=== PATIENT | female | born 1990 | race Caucasian/White ===

== ENCOUNTER 2022-08-07 23:20 | Observation (INO) | payer OTHER, SELFPAY ==
[2022-08-07] MEDS ORDERED: Lactated Ringer's 1,000 ML IV SCH (23:45)
[2022-08-07] MEDS ORDERED: hydrALAZINE 20 MG/ML VIAL SLOW IVP PRN (23:55)
[2022-08-08 00:50] LABS: Bilirubin Neg (Negative); Blood, Urine Negative (Negative); Clarity Clear (Clear); Glucose, Urine (Dipstick) Normal (Negative); Ketone, Urine 50 mg/dL (Negative); Leukocyte 100 (Negative); Nitrite Negative (Negative); Protein, Urine (Dipstick) 15 mg/dl (Neg-Trace); Urobilinogen Normal mg/dL (Less than 2)
[2022-08-08 00:52] LABS: Hemoglobin 7.8 g/dL (12.0-15.5); Mean Corpuscular HGB CONC 29.8 g/dL (32.0-36.0); Mean Corpuscular Hemoglobin 20.6 pg (27.0-33.0); Mean Corpuscular Volume 69.3 fl (81.6-98.3); Mean Platelet Volume 9.8 fl (7.4-10.4); Platelet Count 320 10x3/uL (150-450); RBC Distribution Width 17.8 % (11.5-14.5); Red Blood Cell (RBC) Count 3.78 10x6/uL (3.90-5.03); White Blood Cell (WBC) Count 7.7 10x3/uL (3.5-10.5)
[2022-08-08 00:58] LABS: Bacteria/HPF None Seen HPF (None Seen); RBC/HPF 0-3 HPF (0-3); Squamous Epithelial 0-3 HPF (0-3)
[2022-08-08 01:00] LABS: Amphetamine Not Detected (NotDetected); Barbiturates Screen Not Detected (NotDetected); Benzodiazepine Screen Not Detected (NotDetected); Cocaine Metabolite Screen Not Detected (NotDetected); Methadone Not Detected (NotDetected); Methamphetamine Not Detected (NotDetected); Opiate Screen Not Detected (NotDetected); Oxycodone Screen Not Detected (NotDetected); Phencyclidine (PCP) Not Detected (NotDetected); THC/Cannabinoid Screen Not Detected (NotDetected); Tricyclic Screen Not Detected (NotDetected)
[2022-08-08 01:20] LABS: HIV (1/2) Antibody/Antigen Non-Reactive (NonReactive); HIV 1/2 INDEX 0.13 S/CO (<1.00)
[2022-08-08 01:21] LABS: Syphilis Antibody Nonreactive (Nonreactive); Syphilis Antibody Index 0.05 S/CO (<1.00 Non-Reactive)
[2022-08-08] MEDS ORDERED: Butorphanol Tartrate 1 MG/ML VIAL SLOW IVP PRN (01:34)
[2022-08-08] MEDS ORDERED: Acetaminophen 500 MG TAB PO PRN (01:35)
[2022-08-08] MEDS ORDERED: hydrALAZINE 20 MG/ML VIAL SLOW IVP PRN (01:36)
[2022-08-08] MEDS ORDERED: Promethazine HCl 25 MG/ML VIAL IM PRN (01:36)
[2022-08-08] MEDS ORDERED: Ondansetron PF 4 MG/2 ML Vial IVP PRN (01:36)
[2022-08-08] MEDS ORDERED: Betamet Acet/Betamet Na Ph 30 MG/5 ML VIAL IM SCH (01:45)
[2022-08-08] MEDS ORDERED: Iron, Sodium Ferric Gluconate 250 MG in Sodium Chloride 0.9% 250 ML 250 ML IVPB SCH (01:45)
[2022-08-08] MEDS ORDERED: Betamet Acet/Betamet Na Ph 30 MG/5 ML VIAL ONE (01:46)
[2022-08-08 01:56] LABS: HBSAg Index 0.17 S/CO (0-0.99); Hep B Surf Ag Non-Reactive S/CO (NonReactive)
[2022-08-08 04:24] VITALS: BMI 26.9
[2022-08-08] MEDS ORDERED: Ferrous Gluconate 324 MG TAB PO SCH (08:00)
[2022-08-08 11:14] LABS: #Eosinphils 0.1 10x3/uL (0.0-0.5); #Monocytes 0.5 10x3/uL (0.0-1.1); #Neutrophils 3.8 10x3/uL (1.5-8.4); %Basophils 0.5 % (0.0-2.0); %Eosinophils 0.9 % (0.0-6.0); %Lymphocytes 24.7 % (18.0-47.0); %Monocytes 8.1 % (0.0-10.0); %Neutrophils 65.3 % (40.0-75.0); Hemoglobin 8.6 g/dL (12.0-15.5); Mean Corpuscular HGB CONC 31.2 g/dL (32.0-36.0); Mean Corpuscular Hemoglobin 22.6 pg (27.0-33.0); Mean Corpuscular Volume 72.4 fl (81.6-98.3); Mean Platelet Volume 9.5 fl (7.4-10.4); Platelet Count 227 10x3/uL (150-450); RBC Distribution Width 19.3 % (11.5-14.5); Red Blood Cell (RBC) Count 3.81 10x6/uL (3.90-5.03); White Blood Cell (WBC) Count 5.8 10x3/uL (3.5-10.5)
[2022-08-09 13:06] LABS: Group B Streptococcus by PCR Not Detected (NotDetected)
== END 2022-08-08 12:25 | disposition home health service (06) ==
LOC: CSHLD/OP 23:20 → CSHLD 08-08 02:02 → INTOOBSV 08-08 02:02
PROVIDERS: ADMIT Obstetrics & Gynecology; ATTEND Obstetrics & Gynecology
DX: O47.03 False labor before 37 completed weeks of gestation, third trimester (principal); O99.013 Anemia complicating pregnancy, third trimester; D64.9 Anemia, unspecified; O09.43 Supervision of pregnancy with grand multiparity, third trimester; Z3A.36 36 weeks gestation of pregnancy
CPT/HCPCS: 36415; 36430; 76805; 80306; 81001; 85027; 86762; 86780; 86850; 86900; 86901; 86905; 86922; 87340; 87389; 87653; 99285; J0595; J0702; P9016

== ENCOUNTER 2022-08-21 12:05 | Day surgery (SDC) | payer OTHER ==
[2022-08-21 12:25] VITALS: BMI 26.9
[2022-08-21] MEDS ORDERED: hydrALAZINE 20 MG/ML VIAL SLOW IVP PRN (12:27)
[2022-08-21 13:14] LABS: #Eosinphils 0.1 10x3/uL (0.0-0.5); #Monocytes 0.5 10x3/uL (0.0-1.1); %Basophils 0.5 % (0.0-2.0); %Eosinophils 0.6 % (0.0-6.0); %Lymphocytes 20.4 % (18.0-47.0); %Monocytes 5.5 % (0.0-10.0); %Neutrophils 72.5 % (40.0-75.0); Hemoglobin 9.3 g/dL (12.0-15.5); Mean Corpuscular HGB CONC 31.2 g/dL (32.0-36.0); Mean Corpuscular Volume 73.6 fl (81.6-98.3); Mean Platelet Volume 9.8 fl (7.4-10.4); Platelet Count 244 10x3/uL (150-450); RBC Distribution Width 22.2 % (11.5-14.5); Red Blood Cell (RBC) Count 4.05 10x6/uL (3.90-5.03); White Blood Cell (WBC) Count 8.2 10x3/uL (3.5-10.5)
[2022-08-21 13:43] LABS: Platelet Morphology Comment Appears Adequate
[2022-08-21 13:45] LABS: Anisocytosis MODERATE=16-30 cells (100X) (0-5/hpf); Elliptocytes SLIGHT = 2-5 cells (100X) (0-1/hpf); Hypochromia SLIGHT = 6-15 cells (100X) (0-5/hpf); Macrocytosis SLIGHT = 6-15 cells (100X) (0-5/hpf); Microcytosis SLIGHT = 6-15 cells (100X) (0-5/hpf); Polychromasia SLIGHT = 2-3 cells (100X) (0-2/hpf)
[2022-08-21] MEDS ORDERED: Iron Sucrose Complex 500 MG in Sodium Chloride 0.9% 250 ML 250 ML IVPB SCH (14:45)
[2022-08-21] MEDS ORDERED: Acetaminophen 500 MG TAB PO SCH (14:45)
[2022-08-21 15:35] LABS: Bilirubin Neg (Negative); Blood, Urine Negative (Negative); Clarity Clear (Clear); Glucose, Urine (Dipstick) Normal (Negative); Ketone, Urine 5 mg/dL (Negative); Leukocyte 25 (Negative); Nitrite Negative (Negative); Protein, Urine (Dipstick) Negative (Neg-Trace); Urobilinogen Normal mg/dL (Less than 2)
[2022-08-21 15:49] LABS: Bacteria/HPF Rare-Few HPF (None Seen); CAUTI Indications for Culture Pregnancy; RBC/HPF 0-3 HPF (0-3); Squamous Epithelial 0-3 HPF (0-3); WBC/HPF 0-3 HPF (0-3)
[2022-08-21 15:51] LABS: Urine Culture Reflex Yes Yes
[2022-08-21 23:31] LABS: Hep C IgG Ab Non-Reactive (NonReactive); Hep C Index 0.05 S/CO (0-0.79)
== END 2022-08-21 21:18 | disposition home or self-care (01) ==
LOC: CSHLD/OP 12:05
PROVIDERS: ATTEND Family Medicine
DX: O47.1 False labor at or after 37 completed weeks of gestation (principal); O09.33 Supervision of pregnancy with insufficient antenatal care, third trimester; O99.013 Anemia complicating pregnancy, third trimester; D64.9 Anemia, unspecified; Z87.440 Personal history of urinary (tract) infections; Z3A.37 37 weeks gestation of pregnancy
CPT/HCPCS: 76819; 81001; 85025; 86803; 87077; 87086; 96361; 96365; 96366; 99283; J1756; J7050

== ENCOUNTER 2022-08-28 15:10 | Inpatient (IN) | payer OTHER ==
[2022-08-28] MEDS ORDERED: Butorphanol Tartrate 1 MG/ML VIAL SLOW IVP PRN (16:19)
[2022-08-28] MEDS ORDERED: Promethazine HCl 25 MG/ML VIAL IM PRN ×2 (16:19→17:42)
[2022-08-28] MEDS ORDERED: Methylergonovine 0.2 MG/ML VIAL IM PRN (16:19)
[2022-08-28] MEDS ORDERED: Carboprost 250 MCG/ML AMP IM PRN (16:19)
[2022-08-28] MEDS ORDERED: Ondansetron PF 4 MG/2 ML Vial IVP PRN ×2 (16:19→17:42)
[2022-08-28] MEDS ORDERED: hydrALAZINE 20 MG/ML VIAL SLOW IVP PRN (16:19)
[2022-08-28] MEDS ORDERED: Misoprostol 200 MCG TAB PR PRN (16:19)
[2022-08-28] MEDS ORDERED: Acetaminophen 500 MG TAB PO PRN (16:19)
[2022-08-28] MEDS ORDERED: NS w/ Oxytocin 30 units 500 ML IV SCH (16:30)
[2022-08-28 16:31] LABS: Hemoglobin 9.5 g/dL (12.0-15.5); Mean Corpuscular HGB CONC 30.8 g/dL (32.0-36.0); Mean Corpuscular Hemoglobin 23.5 pg (27.0-33.0); Mean Corpuscular Volume 76.2 fl (81.6-98.3); Mean Platelet Volume 9.8 fl (7.4-10.4); Platelet Count 275 10x3/uL (150-450); RBC Distribution Width 24.9 % (11.5-14.5); Red Blood Cell (RBC) Count 4.04 10x6/uL (3.90-5.03); White Blood Cell (WBC) Count 7.8 10x3/uL (3.5-10.5)
[2022-08-28 16:48] VITALS: BMI 27.3
[2022-08-28] MEDS ORDERED: Fentanyl 2 mcg/Bup 0.1% Cadd 100 ML ONE (17:11)
[2022-08-28 17:13] LABS: HBSAg Index 0.18 S/CO (0-0.99); Hep B Surf Ag Non-Reactive S/CO (NonReactive); Syphilis Antibody Nonreactive (Nonreactive); Syphilis Antibody Index 0.03 S/CO (<1.00 Non-Reactive)
[2022-08-28] MEDS ORDERED: Ibuprofen 800 MG TAB PO PRN (17:14)
[2022-08-28] MEDS ORDERED: Lidocaine 1% (PF) 30 ML VIAL SC PRN (17:14)
[2022-08-28 17:36] LABS: SARS-CoV-2 NAA Rapid Test Not Detected (NotDetected)
[2022-08-28] MEDS ORDERED: Naloxone HCl 0.4 mg/ml Vial IVP PRN ×2 (17:42)
[2022-08-28] MEDS ORDERED: Acetaminophen 325 MG TAB PO PRN (17:42)
[2022-08-28] MEDS ORDERED: diphenhydrAMINE 50 MG/ML VIAL IVP PRN (17:42)
[2022-08-28] MEDS ORDERED: Moisturizing Cream (Eucerin) 113 GM JAR TOP PRN (17:42)
[2022-08-28] MEDS ORDERED: ePHEDrine Sulfate 50 MG/10 ML VIAL SLOW IVP PRN (17:42)
[2022-08-28] MEDS ORDERED: Fentanyl 2 mcg/Bupivacaine 0.1% Cassette 100 ML EPIDURAL SCH (17:45)
[2022-08-28] MEDS ORDERED: Communication Order-Pharmacy FS SCH (17:45)
[2022-08-28] MEDS ORDERED: Lactated Ringer's 500 ML IV PRN (17:59)
[2022-08-28] MEDS ORDERED: Penicillin G Potassium 5 MILL.UNITS in Sodium Chloride 0.9% 100 ML IVPB SCH (18:00)
[2022-08-28] MEDS: Lactated Ringer's 1,000 ML IV SCH (18:01)
[2022-08-28] MEDS ORDERED: Misoprostol 200 MCG TAB ONE (19:29)
[2022-08-28] MEDS ORDERED: Carboprost 250 MCG/ML AMP ONE (19:30)
[2022-08-28] MEDS ORDERED: Methylergonovine 0.2 MG/ML VIAL ONE (19:30)
[2022-08-28] MEDS ORDERED: Tranexamic Acid 1,000 MG/10 ML VIAL ONE (19:30)
[2022-08-28] MEDS: Penicillin G 2.5 MILL.units 2.5 MILL.UNITS in Premix Bag 1 BAG IVPB SCH (23:10)
[2022-08-29] MEDS: Lactated Ringer's 1,000 ML IV SCH (00:40)
[2022-08-29] MEDS: Penicillin G 2.5 MILL.units 2.5 MILL.UNITS in Premix Bag 1 BAG IVPB SCH ×2 (03:31→03:32)
[2022-08-29] MEDS ORDERED: Milk Of Magnesia 30 ML UDCUP PO PRN (03:33)
[2022-08-29] MEDS ORDERED: hydrALAZINE 20 MG/ML VIAL SLOW IVP PRN (03:33)
[2022-08-29] MEDS ORDERED: Lanolin Ointment 7 GM TUBE TOP PRN (03:33)
[2022-08-29] MEDS ORDERED: Measles/Mumps/Rubella 10 MCG/0.5 ML VIAL SC ONE (03:33)
[2022-08-29] MEDS ORDERED: Bisacodyl 10 MG SUPP PR PRN (03:33)
[2022-08-29] MEDS ORDERED: Boostrix 0.5 ML (Tdap) VIAL (>/=7 yrs of age) IM ONE (03:33)
[2022-08-29] MEDS ORDERED: Varicella virus, LIVE 0.5 ML VIAL SC ONE (03:33)
[2022-08-29] MEDS: Ibuprofen 800 MG TAB PO SCH ×3 (06:32→21:27)
[2022-08-29] MEDS ORDERED: Bupivacaine 0.25% HCL 30 ML VIAL ONE (08:00)
[2022-08-29] MEDS: Docusate 100 MG CAP PO SCH ×2 (08:21→21:27)
[2022-08-29] MEDS: Prenatal Vitamin 1 TAB PO SCH (08:21)
[2022-08-29] MEDS: Ferrous Sulfate 325 MG TAB PO SCH ×2 (08:21→17:41)
[2022-08-29] MEDS: Acetaminophen 325 MG TAB PO PRN (15:26)
[2022-08-29] MEDS ORDERED: traMADol HCl 50 MG TAB PO SCH (19:45)
[2022-08-30] MEDS: Acetaminophen 325 MG TAB PO PRN (04:38)
[2022-08-30 04:54] LABS: Hemoglobin 10.1 g/dL (12.0-15.5)
[2022-08-30] MEDS: Ibuprofen 800 MG TAB PO SCH ×2 (05:12→13:40)
[2022-08-30 08:01] VITALS: BP 101/67; TEMP 97.7
[2022-08-30] MEDS: Prenatal Vitamin 1 TAB PO SCH (08:45)
[2022-08-30] MEDS: Ferrous Sulfate 325 MG TAB PO SCH (08:45)
[2022-08-30] MEDS: Docusate 100 MG CAP PO SCH (08:45)
[2022-08-30] MEDS: Acetaminophen 325 MG TAB PO SCH ×2 (08:46→13:39)
== END 2022-08-30 15:04 | disposition home or self-care (01) | DRG 807 ==
LOC: CSHLD/OP 15:10 → CSHLD 16:34 → CSHPP 08-29 05:25
PROVIDERS: ADMIT Obstetrics & Gynecology; ATTEND Obstetrics & Gynecology
PROC: 10E0XZZ Delivery of Products of Conception, External Approach (ICD-10-PCS; principal; 2022-08-29)
PROC: 10907ZC Drainage of Amniotic Fluid, Therapeutic from Products of Conception, Via Natural or Artificial Opening (ICD-10-PCS; 2022-08-29)
DX: O99.824 Streptococcus B carrier state complicating childbirth (principal); Z37.0 Single live birth; D64.9 Anemia, unspecified; F41.9 Anxiety disorder, unspecified; O99.344 Other mental disorders complicating childbirth; O99.02 Anemia complicating childbirth; Z3A.34 34 weeks gestation of pregnancy; Z98.890 Other specified postprocedural states; Z20.822 Contact with and (suspected) exposure to COVID-19
CPT/HCPCS: 36415; 51702; 85014; 85018; 85027; 86780; 86850; 86900; 86901; 86922; 87340; 99285; J2405; J2540; J7120; S0020; U0002

== ENCOUNTER 2024-01-11 17:02 | Day surgery (SDC) | payer SELFPAY ==
[2024-01-11] MEDS ORDERED: hydrALAZINE 20 MG/ML VIAL SLOW IVP PRN (17:30)
[2024-01-11 19:02] VITALS: BMI 28.9
[2024-01-11 19:18] LABS: Bilirubin Neg (Negative); Blood, Urine 10 (Negative); Clarity Clear (Clear); Glucose, Urine (Dipstick) Normal (Negative); Ketone, Urine Negative (Negative); Leukocyte 25 (Negative); Nitrite Negative (Negative); Protein, Urine (Dipstick) Negative (Neg-Trace); Urobilinogen Normal mg/dL (Less than 2)
[2024-01-11 19:20] LABS: Hematocrit 29.8 % (34.9-44.5); Hemoglobin 9.8 g/dL (12.0-15.5); Mean Corpuscular HGB CONC 32.9 g/dL (32.0-36.0); Mean Corpuscular Hemoglobin 26.3 pg (27.0-33.0); Mean Corpuscular Volume 79.9 fL (81.6-98.3); Mean Platelet Volume 10.1 fL (7.4-10.4); Platelet Count 267 10x3/uL (150-450); RBC Distribution Width 14.8 % (11.5-14.5); Red Blood Cell (RBC) Count 3.73 10x6/uL (3.90-5.03); White Blood Cell (WBC) Count 7.3 10x3/uL (3.5-10.5)
[2024-01-11] MEDS: Ondansetron ODT 4 MG TAB SL PRN (19:26)
[2024-01-11 19:30] LABS: Bacteria/HPF 1+ HPF (None Seen); RBC/HPF 0-3 HPF (0-3); Squamous Epithelial 0-3 HPF (0-3); WBC/HPF 0-3 HPF (0-3)
[2024-01-11 19:52] LABS: Syphilis Antibody Nonreactive (Nonreactive); Syphilis Antibody Index 0.04 S/CO (<1.00 Non-Reactive)
[2024-01-11 19:53] LABS: HBsAg Index 0.15 S/CO (0-0.99); HIV (1/2) Antibody/Antigen Non-Reactive (NonReactive); HIV 1/2 INDEX 0.09 S/CO (<1.00); Hep B Surf Ag - L&D Non-Reactive S/CO (NonReactive)
[2024-01-11 21:03] LABS: Amphetamine Not Detected (NotDetected); Barbiturates Screen Not Detected (NotDetected); Benzodiazepine Screen Not Detected (NotDetected); Cocaine Metabolite Screen Not Detected (NotDetected); Methadone Not Detected (NotDetected); Methamphetamine Not Detected (NotDetected); Opiate Screen Not Detected (NotDetected); Oxycodone Screen Not Detected (NotDetected); Phencyclidine (PCP) Not Detected (NotDetected); THC/Cannabinoid Screen Not Detected (NotDetected); Tricyclic Screen Not Detected (NotDetected)
[2024-01-12 00:20] LABS: HBSAB Concentration Less than 8.00 mIU/mL; Hep B Surf AB NONREACTIVE (NonReactive)
[2024-01-14 00:18] LABS: Group B Streptococcus by PCR Not Detected (NotDetected)
== END 2024-01-11 19:40 | disposition home or self-care (01) ==
LOC: CSHLD/OP 17:02
PROVIDERS: ATTEND Obstetrics & Gynecology
DX: O47.03 False labor before 37 completed weeks of gestation, third trimester (principal); O99.013 Anemia complicating pregnancy, third trimester; O09.43 Supervision of pregnancy with grand multiparity, third trimester; O00.01 Abdominal pregnancy with intrauterine pregnancy; Z86.16 Personal history of COVID-19; Z98.890 Other specified postprocedural states; Z3A.36 36 weeks gestation of pregnancy
CPT/HCPCS: 36415; 76815; 80306; 81001; 85027; 86706; 86762; 86780; 86850; 86900; 86901; 87340; 87389; 87653; 99284; Q0162